=== PATIENT | male | born 1970 | race Caucasian/White ===

== ENCOUNTER 2023-05-26 16:41 | Emergency (ER) | payer OTHER ==
[~2023-05-26] VITALS: Ht 175.3 cm; Wt 97.7 kg
[2023-05-26] MEDS ORDERED: MELO15TA28 PO (16:52)
[2023-05-26] MEDS ORDERED: KETOROLAC 60MG 2ML VIAL IM ONE (17:40)
[2023-05-26] MEDS ORDERED: methocarbamoL 500 MG TAB PO ONE (19:20)
[2023-05-26] MEDS ORDERED: METH-1164 PO (19:20)
[2023-05-26] MEDS ORDERED: IBUP-1022 PO (19:20)
[2023-05-26] MEDS: methocarbamoL 500 MG TAB PO ONE ×2 (19:24→19:25)
[2023-05-26 19:29] VITALS: BP 128/78; TEMP 98.8; O2SAT 100
== END 2023-05-26 19:33 | disposition home or self-care (01) ==
LOC: M ED 16:41
DX: S76.011A Strain of muscle, fascia and tendon of right hip, initial encounter (principal); X50.0XXA Overexertion from strenuous movement or load, initial encounter; Y92.39 Other specified sports and athletic area as the place of occurrence of the external cause; Y93.89 Activity, other specified; I10 Essential (primary) hypertension
CPT/HCPCS: 73502; 96372; 99284; J1885

== ENCOUNTER → 2024-01-13 | Outpatient (CLI) | payer OTHER ==
[~2024-01-13] MED LIST: IBUP-1022 PO; MELO15TA28 PO; METH-1164 PO
== END ==
LOC: M RAD 08:16
PROVIDERS: ATTEND Physician Assistant
DX: I10 Essential (primary) hypertension (principal)